=== PATIENT | female | born 1950 | race Caucasian/White ===

== ENCOUNTER 2018-07-21 15:34 | Emergency (ER) | payer MEDICARE, OTHER ==
[~2018-07-21] VITALS: Ht 154.9 cm; Wt 77.1 kg
[2018-07-21] MEDS ORDERED: IBUPROFEN 600 MG TABLET ONE (15:52)
[2018-07-21] MEDS ORDERED: IBUPROFEN 600 MG TABLET PO ONE (16:00)
--- NOTE | 2018-07-21 16:22 | NUR ---
Patient discharged to home in stable conditon. Written and verbal after care instructions given. Patient verbalizes understanding of instructions.pt with family member.
== END 2018-07-21 16:30 | disposition home or self-care (01) ==
LOC: ER 15:38
DX: S82.832A Other fracture of upper and lower end of left fibula, initial encounter for closed fracture (principal); E11.9 Type 2 diabetes mellitus without complications; Z88.0 Allergy status to penicillin; Z88.6 Allergy status to analgesic agent; W22.8XXA Striking against or struck by other objects, initial encounter; Y92.89 Other specified places as the place of occurrence of the external cause; Y99.8 Other external cause status; Y93.89 Activity, other specified
CPT/HCPCS: 73610; A4663